=== PATIENT | female | born 1960 | race Caucasian/White ===

== ENCOUNTER 2018-01-15 06:18 | Day surgery (SDC) | payer BC, OTHER ==
--- NOTE | 2018-01-07 12:15 | HP ---
PREOPERATIVE HISTORY AND PHYSICAL: DATE OF ADMISSION: 01/15/18 PROVIDER: Dr. Delfina Mendoza.* (DICTATED BY FAHEEM GIBSON) CHIEF COMPLAINT: Right knee pain. HISTORY OF PRESENT ILLNESS: Helen is a 57-year-old female, who has been followed by Dr. Mendoza for ongoing pain in her right knee. There is catching, popping, and locking. She has tried activity modification and anti- inflammatories without relief. She was found to have a meniscus tear on her MRI and is interested in surgical intervention for correction of the problem. PAST MEDICAL HISTORY: Hypothyroidism, status post thyroid cancer and excision; asthma; anxiety; alcoholic addiction; depression; osteoarthritis. PAST SURGICAL HISTORY: Thyroidectomy and carpal tunnel release. She reports that she is slow to wake up from anesthesia. CURRENT MEDICATIONS: 1. Meloxicam 15 mg p.o. q. day. 2. Synthroid 150 mcg p.o. q. day. 3. Astepro nasal spray as needed. 4. Flonase nasal spray as needed. 5. Ventolin HFA as needed. 6. Hydrochlorothiazide 25 mg daily. 7. Vitamin D3 supplement 2000 units daily. 8. Adderall XR 30 mg daily. 9. Fluoxetine 40 mg daily. 10. Cytomel 12.5 mg b.i.d. 11. Xyzal 5 mg daily. 12. Klor-Con 20 mEq daily. 13. Probiotic supplement daily. 14. Magnesium supplement daily. 15. Vitamin B complex daily. ALLERGIES: BIAXIN and SULFA. FAMILY HISTORY: Positive for depression, anxiety, cancer, and hypertension. SOCIAL HISTORY: She lives with her . 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 She denies tobacco, alcoholic beverage, or recreational drug use. She exercises regularly and is right hand dominant. REVIEW OF SYSTEMS: Constitutional: Negative for recent hospitalization, fever , chills, night sweats, or unexplained weight loss. Head: Negative for headache, lightheadedness, or balance problems. Cardiovascular: Negative for chest or arm pain with exertion, history of heart attack, heart murmur, heart palpitations. Negative for high blood pressure, negative for embolism or deep vein thrombosis. Respiratory: Negative for chronic cough, shortness of breath with exertion. Positive for asthma and negative for COPD. Gastrointestinal: Negative for heartburn, nausea, vomiting, diarrhea. Positive for occasional constipation. Genitourinary: Negative for nighttime urination, frequency of urination, urinary tract infection or kidney problems. Musculoskeletal: Negative for chronic back or neck. Negative for recent fractures. Skin: Negative for rashes, lesions, lumps, or sores. Neurologic: Negative for seizure, stroke, epilepsy. Positive for depression and anxiety. Endocrine: Negative for diabetes. Positive for hypothyroidism. Hematology: Negative for easy bleeding, bruising, or anemia. PHYSICAL EXAMINATION GENERAL: She is a well-developed, well-nourished pleasant female, in no acute distress at rest. She is alert and oriented x3 with appropriate mood and affect. Gait: She ambulates with an antalgic gait favoring the right. There are no obvious balance or coordination deficits. VITAL SIGNS: The patient is 5 feet 4 inches, 143 pounds. Blood pressure 116/74 , respirations 16. HEENT: Normocephalic, atraumatic. Hearing and vision are grossly intact. NECK: Her trachea is midline. RESPIRATORY: Lungs are clear to auscultation bilaterally. No wheezes, rales, or rhonchi. CARDIOVASCULAR: Regular rate and rhythm. No murmurs, rubs, or gallops. Normal S1, S2. ABDOMEN: Soft, nondistended, nontender. Normal bowel sounds. EXTREMITIES: Right lower extremity, skin is intact without abrasions or open wounds. There is a mild joint effusion. There is no edema, ecchymosis, or gross deformities. She has a varus deformity of the knee with 5 to 130 degrees of flexion. She is tender along the medial joint line with a positive Apley's and Caitlin's test. She has some MCL laxity, but no varus or valgus instability. No edema or varicosities distally. She has full sensation to all nerve distributions. She has 2+ dorsalis pedis pulse. DIAGNOSTIC STUDIES: Imaging: MRI of the right knee shows degenerative changes with likely a tear of the posterior medial meniscus as well as a root tear of the anterior horn of the lateral meniscus. IMPRESSION: Right knee meniscus tear. PLAN: The patient is to undergo a right knee arthroscopy with partial meniscectomy, possible chondroplasty, and possible synovectomy by Dr. Mendoza on 01/15/18. The risks, benefits, and postoperative course were discussed with the patient at length and she would like to proceed. All of her questions were answered to her full satisfaction. We will follow up with the patient in the postoperative phase. FAHEEM GIBSON [id number]/[facility] #: [id number] MTDChristie
[~2018-01-15 06:18] MED LIST: Buffered Lidocaine 0.9% SYRIN* 5 ML/SYR SYRINGE INTRADERM ONE; Famotidine IV* 10 MG/ML 2 ML (20 mg) IV ONE
[2018-01-15] MEDS ORDERED: ceFAZolin 2 GM in NS PREMIX(*) 2 GM/100 ML BAG IVPB ONE (06:44)
[2018-01-15] MEDS ORDERED: Famotidine IV* 10 MG/ML 2 ML (20 mg) ONE (06:44)
[2018-01-15] MEDS ORDERED: Bupivacaine 0.5% SDV PF* 30ML VIAL ONE (06:55)
[2018-01-15] MEDS ORDERED: methylPREDNISolone ACETATE 80* 80 MG/ML 1 ML VIAL ONE (06:55)
[2018-01-15] MEDS ORDERED: EPINEPHRINE 1 MG/ML 1 ML VIAL ONE (06:56)
[2018-01-15] MEDS ORDERED: fentaNYL* 50 MCG/ML 2 ML VIAL (100 MCG VIAL) ONE ×2 (07:05→07:43)
[2018-01-15] MEDS ORDERED: Propofol* 10 MG/ML 20 ML BTL IV PUSH ONE (07:05)
[2018-01-15] MEDS ORDERED: Dexamethasone IV* 4 MG/ML 1 ML (4 MG) ONE (07:05)
[2018-01-15] MEDS ORDERED: Ketorolac INJ* 30 MG/ML 1 ML VIAL ONE (07:05)
[2018-01-15] MEDS ORDERED: Lidocaine 2% PF * 5 ML VIAL ONE (07:05)
[2018-01-15] MEDS ORDERED: Ondansetron INJ* 2 MG/ML VIAL ONE (07:05)
[2018-01-15] MEDS ORDERED: Midazolam* 1 MG/ML 5 ML VIAL (5 MG) ONE (07:06)
[2018-01-15] MEDS ORDERED: KETAMINE HCL* 50 MG/ML 10 ML VIAL ONE (07:06)
[2018-01-15] MEDS ORDERED: Naloxone* 0.4 MG/ML 1 ML VIAL IV PRN (07:49)
[2018-01-15] MEDS ORDERED: fentaNYL* 50 MCG/ML 2 ML VIAL (100 MCG VIAL) IV PRN (07:49)
[2018-01-15] MEDS ORDERED: oxyCODONE/Acetamin 5/325 MG* TAB PO PRN (07:49)
[2018-01-15] MEDS ORDERED: Ondansetron INJ* 2 MG/ML VIAL IV PRN (07:49)
[2018-01-15] MEDS ORDERED: EPHEDrine (Pressors)* 50 MG/ML VIAL ONE (07:51)
[2018-01-15] MEDS ORDERED: Levalbuterol 0.63MG/3ML NEB* UNIT OF USE INH ONE (08:36)
[2018-01-15 09:47] VITALS: BP 119/80
--- NOTE | 2018-01-16 16:00 | OP ---
OPERATIVE REPORT: DATE OF OPERATION: 01/15/18 DATE OF : 60 SURGEON: Delfina Mendoza MD. CUSTOMER FACILITIES SUPERVISOR: FAHEEM Mcgrath. Gayathri did help throughout the procedure with preparation of the leg, wound retraction, manipulat ion of the knee and wound closure ANESTHESIOLOGIST: Dr. Hernandes. ANESTHESIA: General. PRE-OP DIAGNOSES: 1. Right knee lateral meniscal tear. 2. Mild to moderate osteoarthritis. POST-OP DIAGNOSES: 1. Right knee anterior synovitis. 2. Complex tear with parrot beak type fragment of the lateral meniscus. 3. Severe arthritis of the lateral compartment. OPERATIVE PROCEDURE: 1. Right knee arthroscopy with partial lateral meniscectomy. 2. Anterior synovectomy. 3. Lateral compartment chondroplasty. COMPLICATIONS: None. ESTIMATED BLOOD LOSS: Less than 25 cc. SPECIMEN: None. BRIEF HISTORY/INDICATIONS: Ms. Lemus is a 57-year-old female who started to develop mechanical sym ptoms in her right knee joint with difficulty running and jogging. She had to stop jogging because o f the mechanical symptoms and we did order MRI to evaluate for meniscal tear. MRI showed significant tear of the lateral meniscus and some degenerative changes. Due to the patient's continued pain and inability to jog, she elected to undergo right knee arthroscopy with partial meniscectomy, possible chondroplasty and possible synovectomy. Informed consent was obtained from the patient. She underst ood the risks of surgery included, but were not limited to, bleeding, infection, damage to nearby str uctures, continued pain, need for further surgery, stroke, heart attack, blood clot, and . She wished to proceed. INTRAOPERATIVE FINDINGS: Intraoperatively, the patient was noted to have grade 3 and 4 Outerbridge c artilage changes in the lateral compartment with severe arthritis, severe loss of cartilage and a lar ge surface area of exposed subchondral bone. Grade 3 and 4 changes in the patellofemoral compartment was also noted. There was a complex lateral meniscus tear with a parrot-beak type fragment which was displaced into the joint. This involved the red-white zone of the posterior two-thirds of the menis cus. The medial compartment showed minimal arthritic changes and no obvious meniscal tear. DESCRIPTION OF PROCEDURE: Ms. Lemus was identified in the preanesthesia unit. Her right lower extr emity was marked as the correct operative side. Informed consent was signed and placed in the chart. The patient was taken to the operating room and placed under general anesthesia. The patient's rig ht lower extremity was prepped and draped in the usual sterile fashion. Preop time-out was made to c orrectly identify the patient, side and site. Appropriate perioperative antibiotics were given withi n one hour of incision. A 0.5 cm anterolateral portal incision was made with a 15 blade and carried down to the capsule. The trocar was introduced. As soon as the light and water sources were turned on, there was immediate visualization of suprapatellar pouch. The suprapatellar pouch had no obvious abnormality. The patellofemoral compartment had some grade 3 and 4 Outerbridge cartilage changes wi thout significant cartilage flap. Medial gutter showed no plica or loose body. Medial compartment s howed minimal degenerative changes and no obvious meniscal tear. ACL and PCL appeared to be intact. The knee was placed in a [id number] position. There was complex tearing of the entire posterior two-thirds of the lateral meniscus with a displaced parrot beak type fragment into the joint. There was significant amount of exposed subchondral bone along the tibial plateau and femoral condyle. Th is is grade 3 and 4 severe Outerbridge cartilage changes. Lateral gutter had no plica or loose body. Under direct visualization, a medial portal incision was made with a 15 blade. A probe was introduce d and a second tour of the knee joint was performed. There was no obvious medial meniscal tear. The anterior joint line had significant amount of synovitis. This was cleared using a shaver and radiof requency ablation wand. Visualization of the joint was dramatically improved. The knee was placed in a [id number] position. A straight biter and shaver were used to perform partial lateral meniscectomy mainly in the white-red zone. Further probing of the meniscus showed no additional tears or flipped fragments. Any cartila ge flaps were carefully smoothed over with a radiofrequency ablation wand. It was noted there was ex treme amount of exposed subchondral bone along the tibial plateau and femoral condyle. The knee was copiously irrigated with sterile saline. The instruments were carefully removed. The i ncisions were closed using interrupted 3-0 nylon suture. Intraarticular injection of 80 mg Depo-Medro l and 6 cc of 0.25% Marcaine was placed in the knee joint. The patient's incisions were covered with Xeroform, 4x4s, and Webril. Jim wrap and cold pack were placed over this. Patient's anesthesia was reversed without difficulty. She was taken to the PACU in stable condition. Intended weightbearing will be weightbearing as tolerated. Intended DVT prophylaxis will be aspirin. She will follow up in clinic in 2 weeks' time. [id number]/[facility] [place] #: [id number]
== END 2018-01-15 09:55 | disposition home or self-care (01) ==
LOC: OR 06:18
PROVIDERS: ATTEND Orthopaedic Surgery Adult Reconstructive Orthopaedic Surgery
DX: S83.271A Complex tear of lateral meniscus, current injury, right knee, initial encounter (principal); M65.861 Other synovitis and tenosynovitis, right lower leg; M17.11 Unilateral primary osteoarthritis, right knee; X50.3XXA Overexertion from repetitive movements, initial encounter; Y92.9 Unspecified place or not applicable; J45.909 Unspecified asthma, uncomplicated; E03.9 Hypothyroidism, unspecified; Z85.850 Personal history of malignant neoplasm of thyroid; F41.8 Other specified anxiety disorders
CPT/HCPCS: J0690; J1040; J1100; J1885; J2250; J2405; J2704; J3010